=== PATIENT | male | born 1965 | race African-American/Black ===

== ENCOUNTER 2019-04-05 05:11 | Observation (INO) ==
[2019-04-05] MEDS ORDERED: CARDIZEM IV ONE (05:20)
--- NOTE | 2019-04-05 05:31 | PROVIDER DOCUMENTATION ---
HPI-Cardiac General - General Chief Complaint: Palpitations Stated Complaint: HEART RACING Time Seen by Provider: 04/05/19 05:13 Source: patient - History of Present Illness-Cardiac Nature of Presenting Problem: Patient is a 53 year old black male complaining of rapid irregular pulse since this am. Denies fever, chest pain, or sob. Review of Systems - Adult - REVIEW OF SYSTEMS - ADULT Constitutional: denies: chills, fever Eyes: reports: no symptoms reported Ears, Nose, Mouth & Throat: reports: no symptoms reported Cardiovascular: reports: irregular heart rate, palpitations. denies: chest pain Respiratory: reports: no symptoms reported Gastrointestinal: reports: no symptoms reported Genitourinary: reports: no symptoms reported Musculoskeletal: reports: no symptoms reported Integumentary: reports: no symptoms reported Neurological: reports: no symptoms reported Psychiatric: reports: no symptoms reported Endocrine: reports: no symptoms reported Hematologic/Lymphatic: reports: no symptoms reported Allergic/Immunologic: reports: no symptoms reported All Other Systems: Reviewed and Negative Past History - Adult - PAST MEDICAL HISTORY-ADULT Review of Records: reports: Old Records Reviewed, Nursing Assessment Review, Medications Reviewed, Social history reviewed & non-contributory. Major Childhood Illnesses: reports: denies history Cardiovascular: reports: HTN Respiratory: reports: denies history Gastrointestinal: reports: denies history Genitourinary: reports: denies history Musculoskeletal: reports: denies history Neurological: reports: denies history Psychiatric: reports: denies history Physical Exam-General - PHYSICAL EXAM-ADULT Initial Vital Signs Reviewed: Yes - CONSTITUTIONAL General Appearance: alert, no apparent distress, obese, other (nondiaphoretic) - EYES Eyes: other (clear) - HEAD, EARS, NOSE, MOUTH & THROAT HENMT: normocephalic/atraumatic, moist mucous membranes - NECK Neck: non-tender, full range of motion, supple - RESPIRATORY Respiratory: lungs clear - CARDIOVASCULAR Cardiovascular: tachycardia, irregularly irregular - GASTROINTESTINAL (ABDOMEN) Abdominal Exam: normal bowel sounds, non tender, soft. negative: guarding, rebound - LYMPHATIC Lymphatic: no adenopathy - MUSCULOSKELETAL Back Exam: no CVA tenderness Extremity: normal range of motion, non-tender Peripheral Pulses: radial (R): 2+, radial (L): 2+ - SKIN Integumentary: normal color, normal turgor, warm/dry - NEUROLOGIC Neurologic: grossly normal, no motor/sensory deficits - PSYCHIATRIC Psych/Mental Status: normal thought content, anxious - HEART Score HEART Score: History: Slightly Suspicious HEART Score: ECG: Normal HEART Score: Age: 45-65 Years HEART Score: Risk Factors for Atherosclerotic Disease: > or = 3 Risk Factors or History of Atherosclerotic Disease HEART Score: Troponin: < or = Normal Limit Total HEART Score:: 3 Progress - PLAN OF CARE/RESULTS Progress/Plan/Lab Results: Vital Signs - 8 hr 04/05/19 05:17 04/05/19 05:38 04/05/19 06:03 Pulse Rate 130 H 71 71 Respiratory Rate 18 16 18 Blood Pressure 168/114 132/82 132/64 O2 Sat by Pulse Oximetry 95 97 Laboratory Results - last 24 hr 04/05/19 04/05/19 04/05/19 05:32 05:32 05:32 WBC 6.94 RBC 4.61 L Hgb 14.1 Hct 40.9 L MCV 88.7 MCH 30.6 MCHC 34.5 RDW Std Deviation 13.6 Plt Count 145 MPV 10.6 H Immature Gran % (Auto) 0.3 Neut % (Auto) 60.8 Lymph % (Auto) 24.6 Brooke % (Auto) 9.4 H Eos % (Auto) 4.6 Baso % (Auto) 0.3 Immature Gran # (Auto) 0.02 Neut # (Auto) 4.22 Lymph # (Auto) 1.71 Brooke # (Auto) 0.65 H Eos # (Auto) 0.32 Baso # (Auto) 0.02 Sodium Potassium Chloride Carbon Dioxide Anion Gap BUN Creatinine Estimated GFR/1.73 m2 BUN/Creatinine Ratio Glucose Calculated Osmolality Calcium Magnesium Total Bilirubin AST ALT Alkaline Phosphatase Creatine Kinase Creatine Kinase Index CK-MB (CK-2) Troponin T < 0.010 Total Protein Albumin Globulin Albumin/Globulin Ratio TSH 2.09 Urine Opiates Screen Ur Oxycodone Screen Urine Methadone Screen U Propoxyphene Qual Ur Barbituates Screen Ur Tricyclics Screen Ur Phencyclidine Scrn Ur Amphetamines Screen U Methamphetamines Scrn U Benzodiazepines Scrn Urine Cocaine Screen U Cannabinoids Screen 04/05/19 04/05/19 05:32 05:45 WBC RBC Hgb Hct MCV MCH MCHC RDW Std Deviation Plt Count MPV Immature Gran % (Auto) Neut % (Auto) Lymph % (Auto) Brooke % (Auto) Eos % (Auto) Baso % (Auto) Immature Gran # (Auto) Neut # (Auto) Lymph # (Auto) Brooke # (Auto) Eos # (Auto) Baso # (Auto) Sodium 142 Potassium 3.7 Chloride 105 Carbon Dioxide 25 Anion Gap 13 BUN 24 H Creatinine 1.6 H Estimated GFR/1.73 m2 45 BUN/Creatinine Ratio 15 Glucose 161 H Calculated Osmolality 291 Calcium 9.4 Magnesium 1.7 Total Bilirubin 0.60 AST 23 ALT 27 Alkaline Phosphatase 70 Creatine Kinase 304 H Creatine Kinase Index 0.9 CK-MB (CK-2) 2.66 Troponin T Total Protein 6.9 Albumin 4.5 Globulin 2.0 Albumin/Globulin Ratio 2.0 TSH Urine Opiates Screen NONE DETECTED Ur Oxycodone Screen NONE DETECTED Urine Methadone Screen NONE DETECTED U Propoxyphene Qual NONE DETECTED Ur Barbituates Screen NONE DETECTED Ur Tricyclics Screen NONE DETECTED Ur Phencyclidine Scrn NONE DETECTED Ur Amphetamines Screen NONE DETECTED U Methamphetamines Scrn NONE DETECTED U Benzodiazepines Scrn NONE DETECTED Urine Cocaine Screen NONE DETECTED U Cannabinoids Screen NONE DETECTED Orders Category Date Time Status Cardiac Monitoring DIRECTED Care 04/05/19 05:16 Active CHEST-PORTABLE [RAD] Stat Exams 04/05/19 05:16 Completed CBC WITH ELECTRONIC DIFF [HEME] Stat Lab 04/05/19 05:32 Completed CK PROFILE [SP CHEM] Stat Lab 04/05/19 05:32 Completed CMP [COMPREHENSIVE METABOLIC PANEL] [CHEM] Stat Lab 04/05/19 05:32 Completed MAGNESIUM [CHEM] Stat Lab 04/05/19 05:32 Completed TROPONIN T Stat Lab 04/05/19 05:32 Completed TSH Stat Lab 04/05/19 05:32 Completed URINE DRUG SCREEN PL Stat Lab 04/05/19 05:45 Completed Diltiazem [Cardizem] Med 04/05/19 05:20 Discontinued 15 mg IV NOW ONE Oxygen Device Stat Oth 04/05/19 05:18 Active Result Diagrams: 04/05/19 05:32 04/05/19 05:32 - CONSULTS/PCP/HOSPITALIST Notification #1 *Consult/PCP/Hospitalist*: Dr. Gold, hospitalist Time Discussed: 06:55 Consult Disposition: Admit Departure - Departure Date of Disposition Decision: 04/05/19 Time of Disposition Decision: 07:13 DIAGNOSIS: New onset atrial fibrillation, Atrial fibrillation with RVR Disposition: ADMITTED INPATIENT 09 Certified Medical Emergency: Emergent Condition: Stable Referrals and Follow-Ups: None,PCP [Primary Care Provider] - - Critical Care Note This patient required my direct & personal management of CC.: Yes Total Time (mins): 61 Critical Care Statement: This patient required my direct personal management to treat or rule out processes, the absence of which, could potentiallly result in sudden, clinically significant life or limb threatening deterioration. Attestation - Physician/ ITZEL Attestation Patient care was provided by Advanced Practice Provider:: No The physician spent face to face time with patient:: Yes Advanced Practice Provider documentation review:: Supervising physician onsite and consulted in the evaluation and care of this patient. The physician did have a face to face encounter with the patient.
[2019-04-05 05:46] LABS: BASO# 0.02 X1000 (0.0-0.2); BASO% 0.3 % (0.0-0.8); EOS# 0.32 X1000 (0.0-0.7); EOS% 4.6 % (0.0-10.0); HEMATOCRIT 40.9 % (42.0-52.0); HEMOGLOBIN 14.1 g/dL (14.0-18.0); IMM GRAN# 0.02 X1000 (0.0-0.04); IMM GRAN% 0.3 % (0.0-0.5); LYMPH# 1.71 X1000 (1.2-3.4); LYMPH% 24.6 % (20.5-51.1); MCH 30.6 PG (27-31); MCHC 34.5 g/dL (33-37); MCV 88.7 FL (81-99); MONO# 0.65 X1000 (0.11-0.59); MONO% 9.4 % (1.7-9.3); MPV 10.6 FL (7.4-10.4); NEUT# 4.22 X1000 (1.4-6.5); NEUT% 60.8 % (42.2-75.2); PLT 145 X1000 (130-400); RBC 4.61 XMIL (4.7-6.1); RDW 13.6 % (11.5-14.5); WBC 6.94 X1000 (4.8-10.8)
[2019-04-05 06:15] LABS: ALBUMIN 4.5 g/dL (3.5-5.0); CALCIUM 9.4 mg/dL (8.8-10.2); CREATININE 1.6 mg/dL (0.7-1.2); MAGNESIUM 1.7 mg/dL (1.5-2.7); POTASSIUM 3.7 mmol/L (3.5-5.1); TOTAL BILIRUBIN 0.6 mg/dL (0.20-1.00); TOTAL PROTEIN 6.9 g/dL (6.3-8.3)
--- NOTE | 2019-04-05 06:26 | Diag Imaging Result Doc PS360 ---
EXAM: CHEST-PORTABLE HISTORY: palpitations TECHNIQUE: Chest single view COMPARISON: None. FINDINGS: The lungs are well expanded. The heart is not enlarged. The vessels are not distended. There are no infiltrates. No effusion identified. IMPRESSION: Negative exam. Electronically signed by Eliseo Dickinson 04/05/2019 6:24 AM
[2019-04-05 06:54] LABS: CK INDEX 0.9 (0.0-2.5); CK-MB 2.66 ng/mL (0.0-5.0)
[2019-04-05 06:57] LABS: UR AMPHETAMINES QUAL NONE DETECTED (NONE DETECT); UR BARBITUATES QUAL NONE DETECTED (NONE DETECT); UR BENZODIAZEPIN QUAL NONE DETECTED (NONE DETECT); UR CANNABINOIDS QUAL NONE DETECTED (NONE DETECT); UR COCAINE QUAL NONE DETECTED (NONE DETECT); UR METHADONE QUAL NONE DETECTED (NONE DETECT); UR METHAMPHETAMINE QUAL NONE DETECTED (NONE DETECT); UR OPIATES QUAL NONE DETECTED (NONE DETECT); UR OXYCODONE QUAL NONE DETECTED (NONE DETECT); UR PCP QUAL NONE DETECTED (NONE DETECT); UR PROPOXYPHENE QUAL NONE DETECTED (NONE DETECT); UR TCA QUAL NONE DETECTED (NONE DETECT)
[2019-04-05] MEDS ORDERED: CARDIZEM PO ONE (07:17)
--- NOTE | 2019-04-05 10:47 | EKG Report ---
Test Performed on : 04/05/2019 06:19:58 AM Test Reason : afib Blood Pressure : / mmHG Vent. Rate : 072 BPM Atrial Rate : 077 BPM P-R Int : 000 ms QRS Dur : 114 ms QT Int : 404 ms P-R-T Axes : 000 -44 017 degrees QTc Int : 442 ms Atrial fibrillation. Left axis deviation Abnormal ECG When compared with ECG of 05-APR-2019 05:24, (Unconfirmed) Vent. rate has decreased BY 50 BPM Unconfirmed Result
--- NOTE | 2019-04-05 10:47 | EKG Report ---
Test Performed on : 04/05/2019 05:24:07 AM Test Reason : afib Blood Pressure : / mmHG Vent. Rate : 122 BPM Atrial Rate : 133 BPM P-R Int : 000 ms QRS Dur : 106 ms QT Int : 348 ms P-R-T Axes : 000 -48 059 degrees QTc Int : 495 ms Atrial fibrillation. with rapid ventricular response. Left anterior fascicular block Nonspecific ST abnormality Abnormal ECG No previous ECGs available Unconfirmed Result
[2019-04-05 15:28] LABS: CALCIUM 9.1 mg/dL (8.8-10.2); CREATININE 1.3 mg/dL (0.7-1.2); POTASSIUM 3.9 mmol/L (3.5-5.1)
[2019-04-05 15:54] LABS: CK INDEX 1.1 (0.0-2.5); CK-MB 2.78 ng/mL (0.0-5.0)
[2019-04-05] MEDS: NS 1,000 ML IV SCH ×2 (16:00→23:00)
[2019-04-05] MEDS: LOVENOX SUBQ SCH (16:04)
--- NOTE | 2019-04-05 17:51 | HISTORY AND PHYSICAL ---
CHIEF COMPLAINT: My heart rate is fast. HISTORY OF PRESENT ILLNESS: This is a 53-year-old gentleman with a history of hypertension who presents to the emergency room after having a sudden onset of rapid, irregular heartbeats. He denied any chest pain, shortness of breath, any fevers, any dizziness, or syncope. He denied any prior episodes. On arrival to the emergency room, he was found to have a heart rate of 130 and to be in atrial fibrillation with RVR. PAST MEDICAL HISTORY: Hypertension. PAST SURGICAL HISTORY: Right knee surgery. 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 He denies any tobacco use, any illicit drug use. He does drink alcohol occasionally, on a social basis. ALLERGIES: No known drug allergies. HOME MEDICATIONS: Lipitor 40 mg p.o. at bedtime, Coreg 25 mg p.o. daily, and lisinopril hydrochlorothiazide 20/12.5 p.o. daily. REVIEW OF SYSTEMS: Discussed with the patient with pertinent positives stated in the HPI. He denies any syncope, dizziness, any chest pain, any cough, shortness of breath, fever, chills, night sweats, recent weight loss or weight gain, any nausea, vomiting, diarrhea, constipation, black or bloody vomitus or stools, any hematuria, dysuria, frequency, urgency. PHYSICAL EXAMINATION: GENERAL: This is a 53-year-old gentleman who is lying on the stretcher in no distress. VITAL SIGNS: Blood pressure is 157/80 with a heart rate of 51, respirations are 20, temperature is 97.8 degrees, with room air saturations 99 to 100%. EYES: Pupils are equal, round, react to light. EOMs are intact. Sclerae are anicteric. HENT: Head is normocephalic, atraumatic. Mucous membranes are moist. NECK: Supple with trachea midline. CARDIOVASCULAR: Irregularly irregular rate and rhythm. S1 and S2 are appreciated. He has no murmur. No lower extremity edema. Calves are nontender bilateral with peripheral pulses palpable x4 extremities. PULMONARY: Breath sounds are clear with no increased work of breathing noted. Chest rises and falls symmetric with respiration. CHEST WALL: Nontender to palpation. GASTROINTESTINAL: Abdomen is soft, nontender, nondistended, with bowel sounds in all 4 quadrants. GENITOURINARY: He has no CVA nor suprapubic tenderness. NEUROLOGIC: He is alert and oriented x3. SKIN: Warm and dry. LABS: WBC is 6.9, with hemoglobin 14.1, hematocrit 40.9, and platelets of 145,000. Sodium is 142, potassium 3.7, BUN 24, creatinine 1.6, with a glucose of 161. Magnesium is 1.7. CPK is 304 with a CK-MB of 2.6 and troponin of less than 0.010. Chest x-ray reveals negative exam. Lungs are well expanded. Heart is not enlarged. Vessels are not distended. There are no infiltrates and no effusion identified. EKG reveals atrial fibrillation at a rate of 122, that was at 5:25. At 6:20 repeat EKG revealed atrial fibrillation at a rate of 72. ASSESSMENT AND PLAN: 1. Atrial fibrillation with rapid ventricular response, presumed new onset. 2. Hypertension. 3. Acute kidney injury. PLAN: The patient has been admitted to the medical-surgical floor and placed on telemetry, which we will continue. We will continue to trend cardiac enzymes and troponin. We will get an echocardiogram. We will consult Cardiology. We will place him on healthy heart diet, hold him n.p.o. after midnight until cardiac evaluation. We will obtain a lipid profile in the morning. Start Lovenox 1 mg/kg q.12. We will give IV hydration and recheck his BMP to recheck his kidney function in the morning. The patient does state that he has had no prior kidney injury that he knows of. He has never been told that labs were abnormal. We will recheck an EKG in the morning. Further treatments pending hospital course. Dictated by DESHAWN Garrido for Christopher Bynum MD cc: DESHAWN Garrido MD
[2019-04-06 00:04] LABS: CK INDEX 1.1 (0.0-2.5); CK-MB 2.25 ng/mL (0.0-5.0)
--- NOTE | 2019-04-06 01:23 | HISTORY AND PHYSICAL ---
ADDENDUM: Patient seen and examined by myself. Full note dictated and discussed with nurse practitioner. Patient presented to the hospital noting his heart was racing yesterday and today. He does states that he has had some issues with palpitations as far back as a month, but it went away and did not think anything about it. Currently, he is in atrial fibrillation. Unclear as to how long he has been in atrial fibrillation. He is rate controlled. In fact, his heart rates are low, in the 50s and low 60s currently. We will admit him to the hospital, check an echo. Certainly needs to consider having stress testing. Expect that we will need to anticoagulate him. Cardiology may desire to cardiovert him, although, given that we are unclear as to when symptoms started, should consider transesophageal echo first. . cc: Christopher Bynum MD
[2019-04-06] MEDS: LOVENOX SUBQ SCH (04:00)
[2019-04-06] MEDS ORDERED: PRILOSEC PO SCH (07:00)
[2019-04-06 08:31] LABS: CHOLESTEROL 272 mg/dL (0-200); HDL 42 mg/dL (35-55); LDL 171 mg/dL; TRIGLYCERIDES 297 mg/dL (39-160); VLDL 59 mg/dL
[2019-04-06] MEDS ORDERED: COREG PO SCH (09:00)
--- NOTE | 2019-04-06 09:04 | EKG Report ---
Test Performed on : 04/06/2019 08:17:17 AM Test Reason : afib Blood Pressure : / mmHG Vent. Rate : 079 BPM Atrial Rate : 060 BPM P-R Int : 000 ms QRS Dur : 108 ms QT Int : 402 ms P-R-T Axes : 000 -43 031 degrees QTc Int : 460 ms Atrial fibrillation. with premature ventricular or aberrantly conducted complexes. Left axis deviation Abnormal ECG When compared with ECG of 05-APR-2019 06:19, (Unconfirmed) No significant change was found Unconfirmed Result
[2019-04-06 09:08] LABS: AGAP 12; ALBUMIN 3.8 g/dL (3.5-5.0); ALKALINE PHOSPHATASE 58 U/L (32-122); BUN 19 mg/dL (8-22); CALCIUM 8.7 mg/dL (8.8-10.2); CHLORIDE 107 mmol/L (98-107); COSMO 282; CREATININE 1.2 mg/dL (0.7-1.2); ESTIMATED GFR > 60; GLUCOSE 133 mg/dL (70-104); GOT 17 U/L (10-34); GPT 21 U/L (10-44); MAGNESIUM 1.7 mg/dL (1.5-2.7); POTASSIUM 3.9 mmol/L (3.5-5.1); SODIUM 139 mmol/L (136-145); TCO2 21 mmol/L (25-35); TOTAL PROTEIN 5.8 g/dL (6.3-8.3)
[2019-04-06] MEDS ORDERED: LEXISCAN ONE (10:00)
[2019-04-06 10:31] LABS: HEMATOCRIT 40.3 % (42.0-52.0); HEMOGLOBIN 13.9 g/dL (14.0-18.0); MCH 30.4 PG (27-31); MCHC 34.5 g/dL (33-37); MCV 88.2 FL (81-99); MPV 10.3 FL (7.4-10.4); RBC 4.57 XMIL (4.7-6.1); RDW 13.5 % (11.5-14.5); WBC 8.13 X1000 (4.8-10.8)
--- NOTE | 2019-04-06 15:38 | Diag Imaging Result Document ---
PROCEDURE NAME: MYOCARDIAL PERF SCAN, STR/REST - 04/06/2019 PROCEDURE: Lexiscan sestamibi interpretation. SUMMARY: The patient was administered 17.3 mCi of technetium-99m sestamibi, after which resting cardiac images were obtained. The patient was subsequently administered Lexiscan 0.4 mg intravenously, after which the heart rate went from 75 beats per minute to 118 beats per minute, and the blood pressure went from 174/98 to 168/100. With Lexiscan, the patient denied chest discomfort. Following the administration of Lexiscan, the patient was administered 46.0 mCi of technetium-99m sestamibi, after which gated stress cardiac images were obtained. Baseline ECG demonstrated atrial fibrillation. With Lexiscan, there were no diagnostic ST-segment changes. Approximately 4-1/2 minutes after administration of Lexiscan, the patient converted to sinus rhythm. SPECT images were reconstructed in the short, horizontal, and vertical long axis. Review of these images demonstrated no scintigraphic evidence of inducible myocardial ischemia or prior infarct. Gated images demonstrated calculated left ventricular ejection fraction of 59% with symmetrical wall motion/thickening. CONCLUSIONS: 1. Adequate response to Lexiscan. 2. Clinically negative for chest pain. 3. Electrocardiographically, there were no diagnostic ST-segment changes on electrocardiogram following administration of Lexiscan. The patient converted from atrial fibrillation to sinus rhythm during study. 4. Lexiscan sestamibi images demonstrate no scintigraphic evidence of inducible myocardial ischemia. Normal left ventricular systolic function demonstrated. cc: MD Christopher Nugent MD
[2019-04-06 15:41] VITALS: BP 147/72
[2019-04-06] MEDS ORDERED: LIPITOR PO SCH (21:00)
--- NOTE | 2019-04-07 01:12 | ECHO REPORT ---
ORDER DATE: 04/06/2019 MEASUREMENTS: Septal thickness 1.5, left ventricular internal diameter in diastole 5.8, posterior wall thickness 1.5. The aortic root 4.5, left atrium 3.9. SUMMARY: 1. Technically difficult study due to limited acoustic window quality. Intravenous echo contrast agent Optison was utilized to enhance endocardial definition. 2. Moderate sclerotic change of aortic valve demonstrated with adequate aortic valve opening evident. Peak gradient across the aortic valve is 18 mmHg with a mean gradient of 9 mmHg. Velocities across the aortic valve increased due to relative hyperdynamic left ventricular function. There is no significant aortic stenosis. There is mild aortic regurgitation. Mitral and tricuspid valves are without evidence of structural abnormality, while pulmonic valve is not well demonstrated. The aortic root is moderately enlarged. 3. Borderline left ventricular enlargement with moderate concentric left hypertrophy is demonstrated. Estimated left ventricular ejection fraction is approximately 70% with left ventricle appearing somewhat hyperdynamic. No regional wall motion abnormality can be appreciated. Left atrium is borderline enlarged. Right atrium and right ventricle are grossly normal in size with grossly preserved right ventricular systolic function. 4. No pericardial effusion. 5. Appearance of inferior vena cava suggests normal central venous pressure. cc: MD Christopher Nugent MD
--- NOTE | 2019-04-07 07:32 | DISCHARGE SUMMARY ---
ADMISSION DATE: 04/05/2019 DISCHARGE DATE: 04/06/2019 DISCHARGE DIAGNOSES: 1. Atrial fibrillation, currently back in sinus. 2. Hypertension. CONSULTATION: Cardiology. PROCEDURES: Stress test. BRIEF HOSPITAL COURSE: Patient is a 53-year-old male who presented to the hospital with palpitations, subsequently noticed to be in atrial fibrillation. Thankfully, he had an uneventful hospital course. On discharge, patient is awake, alert, oriented. He is in no respiratory distress. He did undergo a stress test which was negative. Interestingly, he was in atrial fibrillation prior to walking on the treadmill and then he converted. He has been in sinus rhythm since. DISPOSITION: Patient will be discharged home. He currently is in sinus rhythm. We will not start anticoagulant other than aspirin. We will continue to follow, and discussed with patient test results. [*] TIME SPENT: Greater than 30 minutes was spent in total care. cc: Christopher Bynum MD
[2019-04-07] MEDS ORDERED: ASPIRIN EC PO SCH (09:00)
[2019-04-07] MEDS ORDERED: HYDROCHLOROTHIAZIDE PO SCH (09:00)
[2019-04-07] MEDS ORDERED: PRINIVIL PO SCH (09:00)
== END 2019-04-06 19:30 | disposition home or self-care (01) ==
LOC: P.ED 05:11 → P.MEDSURG 05:11
PROVIDERS: ATTEND Family Medicine
CPT/HCPCS: 71010; 71045; 78452; 80048; 80053; 80061; 80104; 80301; 80305; 82550; 82553; 83735; 84443; 84484; 85025; 85027; 93005; 93017; 93306; 94761; A9270; A9500; C8929; G0431; G0434; G0477; J1650; J2785; J7030; Q9957